=== PATIENT | male | born 2000 | race African-American/Black ===

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

== ENCOUNTER 2024-05-12 17:43 | Emergency (ER) | payer OTHER, SELFPAY ==
[2024-05-12] MEDS ORDERED: predniSONE 20 MG TAB ONE (19:20)
[2024-05-12] MEDS ORDERED: ALBUTEROL 2.5 MG/3 ML NEB SOL ONE (19:20)
[2024-05-12] MEDS ORDERED: HYDROCODONE/CHLORPHEN 5 ML/OSYR ONE (19:20)
--- NOTE | 2024-05-12 19:37 | RAD REPORT ---
EXAM DESCRIPTION: [facility] Pa And Lat (2 Views)05/12/2024 6:25 pm CLINICAL HISTORY: Chest pain;Cough COMPARISON: Chest Pa And Lat (2 Views) dated 03/09/2018 TECHNIQUE: Portable AP view of the chest. FINDINGS: The lungs are clear. No pneumothorax or effusion. The cardiomediastinal contours are unre markable. IMPRESSION: No acute cardiopulmonary process.
--- NOTE | 2024-05-12 20:01 | ER ---
Nurse's Notes [facility] Name: Hemant Smith Age: 23 yrs Sex: Male : 2000 Arrival Date: 05/12/2024 Time: 17:43 Bed 11 Private MD: Diagnosis: Cough variant asthma Presentation: 05/12 18:05 Chief complaint: Patient states: Cough since this morning - causing chest to hurt ld1 throughout the day. Coronavirus screen: At this time, the client does not indicate any symptoms associated with coronavirus-19. Ebola Screen: No symptoms or risks identified at this time. Initial Sepsis Screen: Does the patient meet any 2 criteria? No. Patient's initial sepsis screen is negative. Does the patient have a suspected source of infection? No. Patient's initial sepsis screen is negative. Risk Assessment: Do you want to hurt yourself or someone else? Patient reports no desire to harm self or others. Onset of symptoms was May 12, 2024. 18:05 Method Of Arrival: Ambulatory ld1 18:05 Acuity: GEMMA 4 ld1 Triage Assessment: 18:05 General: Appears in no apparent distress. comfortable, Behavior is calm, cooperative, ld1 appropriate for age. Pain: Denies pain. EENT: No signs and/or symptoms were reported regarding the EENT system. Neuro: Level of Consciousness is awake, alert, obeys commands, Oriented to person, place, time, situation. Cardiovascular: Capillary refill < 3 seconds Patient's skin is warm and dry. Rhythm is sinus rhythm. Respiratory: Airway is patent Respiratory effort is even, unlabored. Respiratory: Reports cough that is non-productive. GI: Abdomen is flat, non-distended. : No signs and/or symptoms were reported regarding the genitourinary system. Derm: No signs and/or symptoms reported regarding the dermatologic system. Musculoskeletal: No signs and/or symptoms reported regarding the musculoskeletal system. Historical: - Allergies: 18:05 No Known Allergies; ld1 - PMHx: 18:05 Asthma; ld1 - Immunization history:: Adult Immunizations up to date. - Infectious Disease History:: Denies. - Social history:: Smoking status: Patient reports the use of cigarette tobacco products, smokes one-half pack cigarettes per day. Screenin:15 [facility] ED Fall Risk Assessment (Adult) History of falling in the last 3 months, ar6 including since admission No falls in past 3 months (0 pts) Confusion or Disorientation No (0 pts) Intoxicated or Sedated No (0 pts) Impaired Gait No (0 pts) Mobility Assist Device Used No (0 pt) Altered Elimination No (0 pt) Score/Fall Risk Level 0 - 2 = Low Risk Oriented to surroundings, Maintained a safe environment, Educated pt \T\ family on fall prevention, incl call for assistance when getting out of bed, Hourly rounding (assess needs \T\ fall precautionary measures) done. Abuse screen: Denies threats or abuse. Denies injuries from another. Nutritional screening: No deficits noted. Tuberculosis screening: No symptoms or risk factors identified. Assessment: 19:16 General: Appears in no apparent distress. comfortable, Behavior is calm, cooperative, ar6 appropriate for age. Pain: Complains of pain in face Pain currently is 4 out of 10 on a pain scale. Neuro: Level of Consciousness is awake, alert, obeys commands, Oriented to person, place, time, situation. Cardiovascular: Capillary refill < 3 seconds. Respiratory: Reports cough that is productive, pt. reports hx of asthma; pt. reports uses vape Airway is patent. GI: Abdomen is flat, non-distended, Abd is soft and non tender. : No signs and/or symptoms were reported regarding the genitourinary system. EENT: Oral mucosa is moist. Derm: Skin is intact, is healthy with good turgor, Skin is dry, Skin is pink, warm \T\ dry. Skin temperature is warm. Musculoskeletal: No signs and/or symptoms reported regarding the musculoskeletal system. Vital Signs: 18:05 Weight 99.79 kg; Height 6 ft. 1 in. ; Pain 6/10; ld1 18:05 Pulse 67; Resp 18; Temp 97.4(TE); Pulse Ox 97% on R/A; ld1 18:06 BP 148 / 54; ld1 19:15 BP 137 / 87; Pulse 77; Resp 18; Pulse Ox 100% on R/A; ar6 20:02 BP 134 / 72; Pulse 84; Resp 18; Pulse Ox 99% on R/A; ar6 18:05 Body Mass Index 29.03 (99.79 kg, 185.42 cm) ld1 18:05 Pain Scale: Adult ld1 ED Course: 17:48 Patient arrived in ED. sj2 17:49 [facility] sb4 17:49 Gabe Gray MD is Attending Physician. sb4 18:05 Triage completed. ld1 18:05 Arm band placed on right wrist. ld1 18:27 Chest Pa And Lat (2 Views) XRAY In Process Unspecified. EDMS 19:08 Marilee Marie, RN is Primary Nurse. ar6 19:15 No apparent distress. Awaiting radiology results. ar6 19:15 Patient has correct armband on for positive identification. Bed in low position. Call ar6 light in reach. Side rails up X 1. Provided Education on: radiology. Pulse ox on. NIBP on. Door closed. Noise minimized. Lights dimmed. Warm blanket given. Head of bed elevated. 19:15 No provider procedures requiring assistance completed. ar6 20:02 Patient did not have IV access during this emergency room visit. ar6 Administered Medications: 18:15 Drug: Albuterol Inhalation 2.5 mg Inhalation once Route: Inhalation; ar6 20:03 Follow up: Response: No adverse reaction ar6 18:15 Drug: Tussionex Pennkinetic ER PO Suspension 5 ml PO once Route: PO; ar6 20:03 Follow up: Response: No adverse reaction ar6 18:15 Drug: predniSONE PO 40 mg PO once Route: PO; ar6 20:02 Follow up: Response: No adverse reaction ar6 Medication: 19:15 VIS not applicable for this client. ar6 Outcome: 20:00 Discharge ordered by . sb4 20:07 Discharged to home ambulatory, with family, ar6 20:07 Condition: good 20:07 Discharge instructions given to patient, family, Instructed on discharge instructions, follow up and referral plans. medication usage, Demonstrated understanding of instructions, follow-up care, medications, Prescriptions given X 2, 20:07 Patient left the ED. ar6 Signatures: Dispatcher [employer] EDMS Chari Brown RN RN ld1 Malinda Ferraro PA-C PA-C sb4 Marilee Marie, RN RN ar6 Gem Jaquez sj2 Corrections: (The following items were deleted from the chart) 18:07 18:05 Pulse 85bpm; Resp 18bpm; Pulse Ox 97% RA; Temp 97.4F Temporal; ld1 ld1
--- NOTE | 2024-05-12 20:01 | EDPHYS ---
Physician Documentation [facility] Name: Hemant Smith Age: 23 yrs Sex: Male : 2000 Arrival Date: 05/12/2024 Time: 17:43 Bed 11 Private MD: ED Physician Gabe Gray HPI: 05/12 19:21 This 23 yrs old Black Male presents to ER via Ambulatory with complaints of Painful sb4 Cough. 19:21 The patient or guardian reports cough, that is intermittent, with productive sputum. sb4 Onset: The symptoms/episode began/occurred this morning. The patient has not recently seen a physician. patient states he woke up with a cough and it has become more painful throughout the day. does report a history of asthma that is typically triggered by weather changes. denies any other URI symptoms. Historical: - Allergies: 18:05 No Known Allergies; ld1 - PMHx: 18:05 Asthma; ld1 - Immunization history:: Adult Immunizations up to date. - Infectious Disease History:: Denies. - Social history:: Smoking status: Patient reports the use of cigarette tobacco products, smokes one-half pack cigarettes per day. ROS: 19:21 Constitutional: Negative for fever, chills, and weight loss, sb4 19:21 Respiratory: Positive for cough, 19:21 All other systems are negative, Exam: 19:21 Constitutional: This is a well developed, well nourished patient who is awake, alert, sb4 and in no acute distress. Head/Face: Normocephalic, atraumatic. Eyes: Extra-ocular motions intact. Periorbital areas with no swelling, redness, or edema. ENT: Mucous membranes moist. Cardiovascular: Regular rate and rhythm with a normal S1 and S2. Skin: Warm, dry with normal turgor. Normal color with no rashes, no lesions, and no evidence of cellulitis. 19:21 Respiratory: the patient does not display signs of respiratory distress, Respirations: normal, Breath sounds: wheezing: expiratory that is mild, is heard diffusely, Vital Signs: 18:05 Weight 99.79 kg; Height 6 ft. 1 in. ; Pain 6/10; ld1 18:05 Pulse 67; Resp 18; Temp 97.4(TE); Pulse Ox 97% on R/A; ld1 18:06 BP 148 / 54; ld1 19:15 BP 137 / 87; Pulse 77; Resp 18; Pulse Ox 100% on R/A; ar6 20:02 BP 134 / 72; Pulse 84; Resp 18; Pulse Ox 99% on R/A; ar6 18:05 Body Mass Index 29.03 (99.79 kg, 185.42 cm) ld1 18:05 Pain Scale: Adult ld1 MDM: 17:52 Patient medically screened. sb4 19:21 Data reviewed: vital signs, nurses notes, radiologic studies, and as a result, I will sb4 discharge patient. 20:00 Counseling: I had a detailed discussion with the patient and/or guardian regarding the sb4 historical points, exam findings, and any diagnostic results supporting the discharge/admit diagnosis, radiology results, to return to the emergency department if symptoms worsen or persist or if there are any questions or concerns that arise at home. 05/12 18:12 Order name: Chest Pa And Lat (2 Views) XRAY; Complete Time: 19:38 sb4 Administered Medications: 18:15 Drug: Albuterol Inhalation 2.5 mg Inhalation once Route: Inhalation; ar6 20:03 Follow up: Response: No adverse reaction ar6 18:15 Drug: Tussionex Pennkinetic ER PO Suspension 5 ml PO once Route: PO; ar6 20:03 Follow up: Response: No adverse reaction ar6 18:15 Drug: predniSONE PO 40 mg PO once Route: PO; ar6 20:02 Follow up: Response: No adverse reaction ar6 Disposition Summary: 05/12/24 20:00 Discharge Ordered Notes: Location: Home sb4 Problem: new sb4 Symptoms: have improved sb4 Condition: Stable sb4 Diagnosis - Cough variant asthma sb4 Followup: sb4 - With: Emergency Department - When: As needed - Reason: Trouble breathing, Worsening of condition Discharge Instructions: - Discharge Summary Sheet sb4 - Asthma, Adult sb4 Forms: - Work release form sb4 - Family Work Release sb4 - Patient Portal Instructions sb4 - Leadership Thank You Letter sb4 Prescriptions: - Tessalon Perles 100 mg Oral Capsule - take 1 capsule ORAL route every 8 hours As needed; 15 capsule; Refills: 0, sb4 Product Selection Permitted - Medrol (Fadi) 4 mg Oral Tablets, Dose Pack - take 1 tablet ORAL route as directed - follow package instructions; 1 packet; sb4 Refills: 0, Product Selection Permitted Addendum: 05/20/2024 15:36 Co-signature as Attending Physician, Gabe Gray MD I agree with the assessment and c [place] plan of care. Signatures: Dispatcher [employer] Gabe Parker MD MD cha Sims, Lauren, RN RN ld1 Malinda Ferraro, PA-C PA-C sb4 Marilee Marie RN RN ar6
[2024-05-12 20:21] VITALS: TEMP 97.4
[2024-05-12 20:24] VITALS: BP 134/72; O2SAT 99
== END 2024-05-12 20:07 | disposition home or self-care (01) ==
LOC: ER 17:43
DX: J45.991 Cough variant asthma (principal); F17.210 Nicotine dependence, cigarettes, uncomplicated; Z11.52 Encounter for screening for COVID-19
CPT/HCPCS: 71046; 99284; J7512; J7613

== ENCOUNTER 2025-06-07 22:19 | Emergency (ER) | payer SELFPAY ==
--- OUTSIDE RECORDS SUMMARY | 2025-06-07 22:22 | XMS REPORT | Continuity of Care Document ---
Author Name Unknown Address [address] [place] [address] [facility] Address [address] [place] [address] Care Team Providers Care Eyelet Row Marker Name Role Phone PCP, PATIENT DOES NOT HAVE A Primary Care Physic best Unavailable SHELLIE KRISHNAN Attending Clinician Unavailable Racheal Frankel Attending Clinician [phone] Shellie Uribe Attending Clinician [phone] Payers Payer Name Policy Type Policy Number Effective Date Expirati on Date Source [employer] [id number] 2022 00:00:00 Problems Condition Name Condition Details Condition Category Status Onset Date Resolution Date Last Treatment Date Treating Clinician Comments Source No known active problems No known active problems Disease Univers [facility] Allergies, Adverse Reactions, Alerts Allergy Name Allergy Type Status Severity Reaction(s) Onset Date Inactive Date Treating Clinician Comments Source NO KNOWN ALLERGIE S Drug Class Active [facility] Social History Social Habit Start Date Stop Date Quantity Comments Source Exposure to SARS-CoV-2 (event) 2022-06-03 00:00:00 2022-06-13 14:23:00 Not sure [facility] Sex Assigned At 2000 00:00:00 2000 00:00:00 [facility] Smoking Status Start Date Stop Date Source Tobacco smoking consumption unknown [facility] Medications Ordered Medication Name Filled Medication Name Start Date Stop Date Current Medication? Ordering Clinician Indication Dosage Frequency Signature (SIG) Comments Components Source fluticasone propionate 50 mcg/actuati on nasal spray 2021-09 00:00: 00 07-14 05:59 :00 No [id number] 1{spray } Use 1 [place] in each nostril in the morning for 30 days. [facility] cetirizine 10 mg tablet 2021-09 00:00: 00 06-13 00:00 :00 No [id number] 10mg Take 1 tablet by mouth in the morning. [facility] Vital Signs Vital Name Observation Time Observation Value Comments S ean Systolic blood pressure 2022-06-13 19:27:00 120 mm[Hg] [facility] Diastolic blood pressure 2022-06-13 19:27:00 72 mm[Hg] [facility] Heart rate 2022-06-13 19:27:00 74 /min [facility] Body temperature 2022-06-13 19:27:00 37.06 Kayla [facility] Respiratory rate 2022-06-13 19:27:00 16 /min [facility] Body height 2022-06-13 19:27:00 182.9 cm [facility] Body weight 2022-06-13 19:27:00 105.733 kg [facility] BMI 2022-06-13 19:27:00 31.61 kg/m2 [facility] Oxygen saturation in Arterial blood by Pulse oximetry 2022-06-13 19:27:00 97 /min [facility] Procedures Procedure Date / Time Performed Performing Clinicia n Source POCT MOLECULAR STREP 2022-06-13 19:36:00 Niya Krishnan [facility] Encounters Start Date/Time End Date/Time Encounter Type Admission Type Attending Clinicians Care Facility Care Department Encounter ID Source 2023-03-30 13:17:43 2023-03-30 13:17:43 Outpatient RIYA RITTER [id number] [facility]in 2023-02-27 14:11:46 2023-02-27 14:11:46 Outpatient RIYA RITTER [id number] Vitaly F Rubin 2022-06-13 14:20:00 2022-06-13 15:02:31 Outpatient SHELLIE BUCKLEY [facility] [id number] [facility] 2022-06-13 14:20:00 2022-06-13 14:40:00 Urgent Care Racheal Cortes, [facility] ISABEL K[facility] [id number] [facility] 2022-06-13 14:20:00 2022-06-13 14:20:00 Outpatient SHELLIE BUCKLEY [facility] [id number] [facility] Results Test Description Test Time Test Comments Results Result Co mments Source [facility]
[2025-06-07] MEDS ORDERED: NA CHLORIDE 0.9% 1,000 ML ONE (23:50)
[2025-06-07] MEDS ORDERED: METOCLOPRAMIDE 10 MG/2mL INJ ONE (23:55)
[2025-06-07] MEDS ORDERED: DIPHENHYDRAMINE 50 MG/ML VIAL ONE (23:56)
[2025-06-07] MEDS ORDERED: DICYCLOMINE HCL 20 MG/2 ML AMP IM ONE (23:56)
[2025-06-08] MEDS ORDERED: ONDANSETRON 4 MG/2 ML VIAL ONE (00:28)
[2025-06-08 00:29] LABS: Absolute Lymphocytes (CBC) 2.2 K/uL (0.7-4.9); Hematocrit 48.2 % (39.6-49.0); Hemoglobin 16.5 g/dL (13.6-17.9); MCH 27.7 pg (27.0-35.0); MCHC 34.1 g/dL (32.0-36.0); MCV 81.2 fL (80-100); MPV 9.8 fL (7.6-11.3); Nucleated RBC Absolute Count 0.0 (0-0); Nucleated Red Blood Cells % 0.1 % (0-0); RBC Red Blood Cell Count 5.95 M/uL (4.33-5.43); White Blood Count 12.20 thou/uL (4.3-10.9)
[2025-06-08 00:34] LABS: Sqamous Epithelial None Seen /HPF (None Seen); Urine Culture Reflex Order NOT NEEDED; Urine Microscopic Reflex YN ORDER UMIC
[2025-06-08 00:38] LABS: ALT/SGPT 36.0 U/L (16-61); AST/SGOT 15.0 U/L (15-37); Albumin 4.2 g/dL (3.4-5.0); Albumin/Globulin Ratio 0.9 (1.1-1.8); Alkaline Phosphatase 104.0 U/L (45-117); Anion Gap 6.6 mEq/L (5.0-15.0); BUN Blood Urea Nitrogen 15.0 mg/dL (7-18); Globulin 4.7 g/dL (2.3-3.5); Glucose Level 86.0 mg/dL (74-106); Lipase 119.0 U/L (13-75); Potassium 3.6 mEq/L (3.5-5.1)
--- NOTE | 2025-06-08 01:49 | RAD REPORT ---
EXAM DESCRIPTION: Abdomen Pelvis W Contrast RadLex: CT ABDOMEN PELVIS WITH IV CONTRAST CLINICAL HISTORY: 24 years Male; ABD PAIN; IV ONLY Bed Name: 7 TECHNIQUE: CT of the abdomen and pelvis [with] intravenous contrast. All CT scans at this facility use dose modulation, iterative reconstruction, and/or weight based dosi ng when appropriate to reduce radiation dose to as low as reasonably achievable. COMPARISON: None. FINDINGS: Lower thorax: Lung bases are clear Abdomen: Stomach: Within normal limits Liver: No focal lesions. No intrahepatic ductal distention. Gallbladder: Nondistended Pancreas: Within normal limits Spleen: Within normal limits Right kidney: No hydronephrosis. No focal lesion. Left kidney: No hydronephrosis. No focal lesion. Adrenal glands: Within normal limits Vascular structures: Within normal limits Nodes: No lymphadenopathy by size criteria Pelvis: Small bowel: No significant distention. Fluid-filled contents. Appendix: Within normal limits Colon: No distention or acute pericolonic edema. Fluid-filled contents. Peritoneum: No free intraperitoneal fluid or air. Bones: No acute bone findings. Bladder: Unremarkable. Reproductive organs: No acute findings. IMPRESSION: 1. Fluid-filled small and large bowel contents, can be seen in setting of diarrheal illness. 2. Otherwise no acute abdominopelvic findings. Electronically signed by: Maugi Gongora MD 06/08/2025 01:47 AM CDT TYG Due to temporary technical issues with the PACS/[place] reporting system, reports are being true d by the in-house radiologist without review as a courtesy to ensure prompt reporting the interpreting radiologist is fully responsible for the content of the report. Transcribed Date/Time: 06/08/2025 1:49 AM
--- NOTE | 2025-06-08 02:09 | EDPHYS ---
Physician Documentation [facility] Name: Hemant Smith Age: 24 yrs Sex: Male : 2000 Arrival Date: 06/07/2025 Time: 22:19 Bed 7 Private MD: ED Physician Samson Gold HPI: 06/07 23:35 This 24 yrs old Black Male presents to ER via Ambulatory with complaints of Abdominal cp Pain. 23:35 The patient presents with abdominal pain that is diffuse. cp 23:35 Onset: The symptoms/episode began/occurred today after taking OTC laxative, mag cp citrate, for constipation. 23:35 Associated signs and symptoms: Pertinent negatives: blood in stools, fever, testicular cp pain. The symptoms are described as crampy. Historical: - Allergies: 22:56 No Known Allergies; jj7 - PMHx: 22:56 Asthma; jj7 - PSHx: 22:56 None; jj7 - Immunization history:: Adult Immunizations up to date. - Infectious Disease History:: Denies. - Social history:: Smoking status: Patient denies any tobacco usage or history of. Patient/guardian denies using alcohol, street drugs, IV drugs. ROS: 23:40 Eyes: Negative for injury, pain, redness, and discharge, cp 23:40 Constitutional: Negative for body aches, chills, fever, poor PO intake, 23:40 ENT: Negative for drainage from ear(s), ear pain, sore throat, difficulty swallowing, difficulty handling secretions, 23:40 Cardiovascular: Negative for chest pain, edema, palpitations, 23:40 Respiratory: Negative for cough, shortness of breath, wheezing, 23:40 Abdomen/GI: Positive for abdominal cramps, 23:40 Neuro: Negative for altered mental status, dizziness, headache, weakness, 23:40 All other systems are negative, Exam: 23:40 Head/Face: Normocephalic, atraumatic. cp 23:40 Constitutional: The patient appears in no acute distress, alert, awake, non-toxic, well developed, well nourished, 23:40 Eyes: Periorbital structures: appear normal, Conjunctiva: normal, no exudate, no injection, Sclera: no appreciated abnormality, Lids and lashes: appear normal, bilaterally, 23:40 ENT: External ear(s): are unremarkable, Nose: is normal, Mouth: Lips: moist, Oral mucosa: moist, Posterior pharynx: Airway: no evidence of obstruction, patent, 23:40 Chest/axilla: Inspection: normal, 23:40 Cardiovascular: Rate: normal, Rhythm: regular, 23:40 Respiratory: the patient does not display signs of respiratory distress, Respirations: normal, no use of accessory muscles, no retractions, labored breathing, is not present, Breath sounds: are clear throughout, no decreased breath sounds, 23:40 Abdomen/GI: Inspection: abdomen appears normal, Bowel sounds: active, all quadrants, Palpation: soft, in all quadrants, moderate abdominal tenderness, in the right upper quadrant and left upper quadrant, rebound tenderness, is not appreciated, involuntary guarding, is not appreciated, 23:40 Back: CVA tenderness, is absent, 23:40 Neuro: Orientation: to person, place \T\ time. Mentation: is normal, Vital Signs: 22:49 BP 142 / 102; Pulse 84; Resp 20; Temp 98.5; Pulse Ox 100% ; Weight 90.72 kg; Height 6 jj7 ft. 1 in. ; Pain 8/; 06/08 01:36 BP 136 / 60; Pulse 63; Resp 18; Pulse Ox 100% ; kb4 02:21 BP 141 / 77; Pulse 68; Resp 16 S; Pulse Ox 100% on R/A; lg3 06/07 22:49 Body Mass Index 26.39 (90.72 kg, 185.42 cm) [facility] 06/07 22:49 Pain Scale: Adult 7 MDM: 06/07 23:06 Medical Screening Exam initiated cp 06/08 02:07 Data reviewed: vital signs, nurses notes, lab test result(s), radiologic studies, CT cp scan, and as a result, I will discharge patient. 02:07 Differential diagnosis: appendicitis, bowel obstruction, cholecystitis, Cholelithiasis, cp diverticulitis, gastritis, non-specific abd pain, pancreatitis. I considered the following discharge prescriptions or medication management in the emergency department Medications were administered in the Emergency Department. See MAR. Counseling: I had a detailed discussion with the patient and/or guardian regarding the historical points, exam findings, and any diagnostic results supporting the discharge/admit diagnosis, lab results, radiology results, to return to the emergency department if symptoms worsen or persist or if there are any questions or concerns that arise at home. Response to treatment: the patient's symptoms have mildly improved after treatment, and as a result, I will discharge patient. Special discussion: Based on the patient's Hx, exam, and Dx evaluation, there is no indication for emergent surgery or inpatient Tx. It is understood by the patient/guardian that if the Sx's persist or worsen they need to return immediately for re-evaluation. 06/07 23:32 Order name: CBC with Diff; Complete Time: :51 cp 06/08 01:51 Interpretation: Normal except: WBC 12.20; RBC 5.95; MN% 12.5; NEUT A 8.3; MNA 1.5. cp 06/07 23:32 Order name: CMP; Complete Time: :51 cp 06/08 01:51 Interpretation: Normal except: CRE 1.35; GFR 76; BILIT 1.1; TP 8.9; GLOB 4.7; A/G 0.9. cp 06/07 23:32 Order name: Lipase; Complete Time: :51 cp 06/08 01:52 Interpretation: Abnormal: LIP 119. cp 06/07 23:38 Order name: UA Rfx Boby Cult if indicated; Complete Time: :51 lg3 06/08 01:52 Interpretation: Normal except: Urine SG > 1.030; UPROT 1+; UUROB 1+. cp 06/07 23:44 Order name: CT Abd/Pelvis - IV Contrast Only; Complete Time: 01:51 cp 06/08 01:52 Interpretation: Report reviewed. 06/07 23:32 Order name: IV Saline Lock; Complete Time: :51 cp 06/07 23:32 Order name: Labs collected and sent; Complete Time: 23:51 cp 06/08 01:53 Order name: PO challenge; Complete Time: 01:55 cp Administered Medications: 00:04 Drug: NS 0.9% IV 1000 ml IV at 1 bolus Per protocol; to be given as a bolus over 60 lg3 minutes Route: IV; Rate: 1 bolus; Site: left antecubital; 01:10 Follow up: IV Status: Completed infusion; IV Intake: 1000ml lg3 00:04 Drug: metoCLOPramide IVP 10 mg IVP once; over 1 to 2 minutes Route: IVP; Site: left lg3 antecubital; 00:31 Follow up: Response: No adverse reaction kb4 00:04 Drug: diphenhydrAMINE IVP 25 mg IVP once Route: IVP; Site: left antecubital; lg3 00:31 Follow up: Response: No adverse reaction kb4 00:04 Drug: Dicyclomine IM 20 mg IM once Route: IM; Site: right deltoid; lg3 00:31 Follow up: Response: No adverse reaction kb4 00:31 Drug: Ondansetron IVP 4 mg IVP once; over 2 minutes Route: IVP; Site: left antecubital; kb4 01:37 Follow up: Response: No adverse reaction kb4 Disposition Summary: 06/08/25 02:08 Discharge Ordered Notes: Location: Home cp Problem: new cp Symptoms: have improved cp Condition: Stable cp Diagnosis - Nausea with vomiting, unspecified cp - Diarrhea, unspecified cp Followup: cp - With: Private Physician - When: 2 - 3 days - Reason: symptoms continue Discharge Instructions: - Discharge Summary Sheet cp - Diarrhea, Adult cp - Nausea and Vomiting, Adult cp Forms: - Medication Reconciliation Form cp - Antibiotic Education cp - Prescription Opioid Use cp - Patient Portal Instructions cp - Leadership Thank You Letter cp Prescriptions: - Zofran 4 mg Oral Tablet - take 1 tablet ORAL route every 12 hours As needed; 20 tablet; Refills: 0, cp Product Selection Permitted Addendum: 06/12/2025 09:09 Co-signature as Attending Physician, Samson Gold DO I reviewed the patient's care t t7 provided by the Advanced Practice Provider and agree with the diagnosis and treatment plan. Signatures: Dispatcher [facility] Gabe Hardy PA-C PA-C cp Able, Lacie RN RN lg3 Debra Prajapati RN RN jj7 Jade Blount RN RN kb4 Samson Gold DO DO tt7 Corrections: (The following items were deleted from the chart) 06/09 02:19 06/08 23:40 Constitutional: Negative for body aches, chills, fever, poor PO intake, cp cp 06/09 02:19 06/08 23:40 Cardiovascular: Negative for chest pain, edema, palpitations, cp cp 06/09 02:06/08 23:40 Respiratory: Negative for cough, shortness of breath, wheezing, cp cp 06/09 02:06/08 23:40 Eyes: Negative for injury, pain, redness, and discharge, cp cp 06/09 02:06/08 23:40 ENT: Negative for drainage from ear(s), ear pain, sore throat, difficulty cp swallowing, difficulty handling secretions, cp 06/09 02:06/08 23:40 Abdomen/GI: Positive for abdominal cramps, cp cp 06/09 02:06/08 23:40 Neuro: Negative for altered mental status, dizziness, headache, weakness, cpcp 06/09 02:06/08 23:40 All other systems are negative, cp cp
--- NOTE | 2025-06-08 02:09 | ER ---
Nurse's Notes [facility] Name: Hemant Smith Age: 24 yrs Sex: Male : 2000 Arrival Date: 06/07/2025 Time: 22:19 Bed 7 Private MD: Diagnosis: Nausea with vomiting, unspecified;Diarrhea, unspecified Presentation: 06/07 22:49 Chief complaint: Patient states: CONSTIPATION FOR 4 DAYS. 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 NOW HAVING ABDOMINAL CRAMPING .BILATERAL UPPER QUADRANT PAIN. ALSO AGGRAVATED HIS RIGHT SHOULDER AGAIN TONIGHT. Coronavirus screen: At this time, the client does not indicate any symptoms associated with coronavirus-19. Ebola Screen: No symptoms or risks identified at this time. Initial Sepsis Screen: Does the patient meet any 2 criteria? No. Patient's initial sepsis screen is negative. Does the patient have a suspected source of infection? No. Patient's initial sepsis screen is negative. Risk Assessment: Do you want to hurt yourself or someone else? Patient reports no desire to harm self or others. Note MAG CITRATE. Onset of symptoms was June 07, 2025. 22:49 Method Of Arrival: Ambulatory [facility] 22:49 Acuity: GEMMA 3 jj7 Triage Assessment: 22:49 General: Appears in no apparent distress. comfortable, Behavior is calm, cooperative, jj7 appropriate for age. Pain: Complains of pain in right upper quadrant and left upper quadrant Pain currently is 8 out of 10 on a pain scale. EENT: No deficits noted. Neuro: No deficits noted. Cardiovascular: No deficits noted. Respiratory: No deficits noted. GI: Reports upper abdominal pain, nausea. : No deficits noted. Derm: No deficits noted. Musculoskeletal: No deficits noted. Historical: - Allergies: 22:56 No Known Allergies; jj7 - PMHx: 22:56 Asthma; jj7 - PSHx: 22:56 None; jj7 - Immunization history:: Adult Immunizations up to date. - Infectious Disease History:: Denies. - Social history:: Smoking status: Patient denies any tobacco usage or history of. Patient/guardian denies using alcohol, street drugs, IV drugs. Screenin:41 [facility] ED Fall Risk Assessment (Adult) History of falling in the last 3 months, lg3 including since admission No falls in past 3 months (0 pts) Confusion or Disorientation No (0 pts) Intoxicated or Sedated No (0 pts) Impaired Gait No (0 pts) Mobility Assist Device Used No (0 pt) Altered Elimination No (0 pt) Score/Fall Risk Level 0 - 2 = Low Risk Oriented to surroundings, Maintained a safe environment, Educated pt \T\ family on fall prevention, incl call for assistance when getting out of bed, Assessed \T\ reinforced patient's understanding of fall precautions. Abuse screen: Denies threats or abuse. Denies injuries from another. Nutritional screening: No deficits noted. Tuberculosis screening: No symptoms or risk factors identified. Assessment: 23:41 General: Appears in no apparent distress. comfortable, Behavior is calm, cooperative. lg3 Pain: Complains of pain in left upper quadrant and right upper quadrant Pain currently is 3 out of 10 on a pain scale. Quality of pain is described as crampy. Neuro: No deficits noted. Hernandez Agitation-Sedation Scale (RASS): 0 - Alert and Calm Level of Consciousness is awake, alert, obeys commands, Oriented to person, place, time, situation. Cardiovascular: No deficits noted. Denies chest pain, shortness of breath, Capillary refill < 3 seconds Clubbing of nail beds is absent JVD is absent Patient's skin is warm and dry. Respiratory: No deficits noted. Airway is patent Respiratory effort is even, unlabored, Respiratory pattern is regular, symmetrical. GI: Abdomen is round non-distended, Bowel sounds present X 4 quads. Abd is soft X 4 quads Abdomen is tender to palpation in right upper quadrant and left upper quadrant Reports upper abdominal pain, cramping. : No signs and/or symptoms were reported regarding the genitourinary system. EENT: No deficits noted. No signs and/or symptoms were reported regarding the EENT system. Derm: No deficits noted. No signs and/or symptoms reported regarding the dermatologic system. Skin is intact, is healthy with good turgor, Skin is dry, Skin is normal, Skin temperature is warm. Musculoskeletal: No deficits noted. No signs and/or symptoms reported regarding the musculoskeletal system. Circulation, motion, and sensation intact. Range of motion: intact in all extremities. 06/08 01:36 Reassessment: No changes from previously documented assessment. Patient and/or family kb4 updated on plan of care and expected duration. Pain level reassessed. Patient is alert, oriented x 3, equal unlabored respirations, skin warm/dry/pink. 02:20 Reassessment: Patient appears in no apparent distress at this time. No changes from lg3 previously documented assessment. Patient and/or family updated on plan of care and expected duration. Pain level reassessed. Patient is alert, oriented x 3, equal unlabored respirations, skin warm/dry/pink. Patient states feeling better. Patient states symptoms have improved. Vital Signs: 06/07 22:49 BP 142 / 102; Pulse 84; Resp 20; Temp 98.5; Pulse Ox 100% ; Weight 90.72 kg; Height 6 7 ft. 1 in. ; Pain 04/15; 06/08 01:36 BP 136 / 60; Pulse 63; Resp 18; Pulse Ox 100% ; kb4 02:21 BP 141 / 77; Pulse 68; Resp 16 S; Pulse Ox 100% on R/A; lg3 06/07 22:49 Body Mass Index 26.39 (90.72 kg, 185.42 cm) [facility] 06/07 22:49 Pain Scale: Adult [facility] ED Course: 06/07 22:20 Patient arrived in ED. gm2 22:25 Gabe Hardy PA-C is PHCP. cp 22:25 Samson Gold DO is Attending Physician. cp 22:54 Triage completed. 7 22:56 Arm band placed on right wrist. 7 23:15 Jade Blount, RN is Primary Nurse. kb4 23:41 Patient has correct armband on for positive identification. Placed in gown. Bed in low lg3 position. Call light in reach. Side rails up X 1. Client placed on continuous cardiac and pulse oximetry monitoring. NIBP monitoring applied. Door closed. Noise minimized. Warm blanket given. Pillow given. 23:41 Initial lab(s) drawn, by me, sent to lab. Urine collected: clean catch specimen, clear. lg3 Inserted saline lock: 20 gauge in left antecubital area, using aseptic technique. Blood collected. Flushed with 10 mL NS. 06/08 00:25 CT Abd/Pelvis - IV Contrast Only In Process Unspecified. EDMS 02:21 No provider procedures requiring assistance completed. IV discontinued, intact, lg3 bleeding controlled, No redness/swelling at site. Pressure dressing applied. Administered Medications: 00:04 Drug: NS 0.9% IV 1000 ml IV at 1 bolus Per protocol; to be given as a bolus over 60 lg3 minutes Route: IV; Rate: 1 bolus; Site: left antecubital; 01:10 Follow up: IV Status: Completed infusion; IV Intake: 1000ml lg3 00:04 Drug: metoCLOPramide IVP 10 mg IVP once; over 1 to 2 minutes Route: IVP; Site: left lg3 antecubital; 00:31 Follow up: Response: No adverse reaction kb4 00:04 Drug: diphenhydrAMINE IVP 25 mg IVP once Route: IVP; Site: left antecubital; lg3 00:31 Follow up: Response: No adverse reaction kb4 00:04 Drug: Dicyclomine IM 20 mg IM once Route: IM; Site: right deltoid; lg3 00:31 Follow up: Response: No adverse reaction kb4 00:31 Drug: Ondansetron IVP 4 mg IVP once; over 2 minutes Route: IVP; Site: left antecubital; kb4 01:37 Follow up: Response: No adverse reaction kb4 Medication: 06/07 23:41 VIS not applicable for this client. lg3 Intake: 06/08 01:10 IV: 1000ml; Total: 1000ml. lg3 Outcome: 02:08 Discharge ordered by MD. fan 02:21 Discharged to home ambulatory, lg3 02:21 Condition: stable 02:21 Discharge instructions given to patient, Instructed on discharge instructions, follow up and referral plans. medication usage, Demonstrated understanding of instructions, follow-up care, medications, Prescriptions given X 1, 02:22 Patient left the ED. lg3 Signatures: Dispatcher [employer] EDMS Gabe Hardy PA-C PABreanna Bueno cp, RN RN lg3 Debra Prajapati RN RN jj7 Chanel Cedillo 2 Jade Blount RN RN kb4
[2025-06-08 02:57] VITALS: TEMP 98.5; O2SAT 100
[2025-06-08 02:59] VITALS: BP 141/77
== END 2025-06-08 02:22 | disposition home or self-care (01) ==
LOC: ER 22:19
DX: R11.2 Nausea with vomiting, unspecified (principal); R19.7 Diarrhea, unspecified
CPT/HCPCS: 36415; 74177; 80053; 81001; 83690; 85025; 96361; 96372; 96374; 96375; 99284; J0500; J1200; J2405; J2765; J7030; Q9967